=== PATIENT | male | born 1985 | race Caucasian/White ===

== ENCOUNTER 2019-04-11 16:20 | Emergency (ER) | payer MEDICAID ==
--- NOTE | 2019-04-11 16:48 | ED Physician Documentation ---
PD HPI HEADACHE - Stated complaint Stated Complaint: HEADACHE - Chief complaint Chief Complaint: Neuro - History obtained from History obtained from: Patient PD PAST MEDICAL HISTORY - Past Surgical History Past Surgical History: Yes HEENT: Myringotomy (tubes) - Present Medications Home Medications: Ambulatory Orders Medication Instructions Recorded Confirmed Amoxicillin/Potassium Clav 1 each PO BID #20 tablet 05/07/14 [Augmentin 875-125 Tablet] Hydrocodone/Acetaminophen 1 - 2 tab PO Q6H PRN #20 tablet 05/07/14 [Hydrocodon-Acetaminophen 5-325] predniSONE [Deltasone] 60 mg PO DAILY 5 Days tablet 05/07/14 - Allergies Allergies/Adverse Reactions: Allergies Allergy/AdvReac Type Severity Reaction Status Date / Time No Known Drug Allergies Allergy Verified 04/11/19 16:41 - Social History Does the pt smoke?: Yes Smoking Status: Current every day smoker Does the pt drink ETOH?: Yes Does the pt have substance abuse?: Yes - Immunizations Immunizations are current?: No Immunizations: TDAP >10years/unknown - POLST Patient has POLST: No Results - Vitals Vitals: Vital Signs - 24 hr 04/11/19 16:38 Temperature 36.6 C Heart Rate 79 Respiratory 16 Rate Blood Pressure 157/87 H O2 Saturation 100 Oxygen O2 Source Room air
[2019-04-11] MEDS ORDERED: PROCHLORPERAZINE 10 MG/2 ML VIAL IVP STA (17:18)
[2019-04-11] MEDS ORDERED: KETOROLAC 30 MG/ML VIAL IVP STA (17:18)
[2019-04-11] MEDS ORDERED: SODIUM CHLORIDE 0.9% 1,000 ML IV ONE (17:18)
[2019-04-11] MEDS ORDERED: diphenhydrAMINE INJ 50 MG/ML VIAL IVP STA (17:18)
[2019-04-11 17:24] LABS: BASOPHILS % (AUTO) 0.4 %; HGB - HEMOGLOBIN 18.6 g/dL (14.0-18.0); LYMPHOCYTES # (AUTO) 0.6 10^3/uL (1.5-3.5); LYMPHOCYTES % (AUTO) 7.6 %; MEAN CORPUSCULAR HEMOGLOBIN 33.2 pg (27.0-31.0); MEAN CORPUSCULAR HGB CONC 35.4 g/dL (32.0-36.0); MEAN CORPUSCULAR VOLUME 93.6 fL (80.0-94.0); MONOCYTES # (AUTO) 0.4 10^3/uL (0.0-1.0); MONOCYTES % (AUTO) 4.6 %; NEUTROPHILS # (AUTO) 7.2 10^3/uL (1.5-6.6); PLT - PLATELET COUNT 233 10^3/uL (130-450); RED BLOOD COUNT 5.61 10^6/uL (4.70-6.10); RED CELL DISTRIBUTION WIDTH 11.8 % (12.0-15.0); WHITE BLOOD COUNT 8.2 x10^3/uL (4.8-10.8)
--- NOTE | 2019-04-11 17:29 | ED Physician Documentation ---
PD HPI HEADACHE - Stated complaint Stated Complaint: HEADACHE - Chief complaint Chief Complaint: Neuro - History obtained from History obtained from: Patient, Family - History of Present Illness Timing - onset: How many days ago (4) Timing - onset during: Rest Timing - duration: Days (4) Timing - details: Gradual onset Pain level max: 10 Pain level now: 8 Location: Global Quality: Throbbing, Aching. No: Thunderclap Associated symptoms: Nausea. No: Fever, Stiff neck, Vomiting, Weakness, Numbness, Syncope, Seizure, Eye pain, Vision changes Improved by: Rest, Dark room Worsened by: Light, Noise Contributing factors: No: Anticoagulated, Possible carbon monoxide, Hypertension, Recent illness, Trauma Recently seen: Not recently seen Review of Systems Ten Systems: 10 systems reviewed and negative Constitutional: denies: Fever, Chills Ears: denies: Ear pain Nose: denies: Rhinorrhea / runny nose, Congestion Throat: denies: Sore throat Cardiac: denies: Chest pain / pressure Respiratory: denies: Cough GI: denies: Abdominal Pain, Nausea, Vomiting, Constipation, Diarrhea, Hematemesis, Bloody / black stool Skin: denies: Rash Musculoskeletal: denies: Neck pain, Back pain Neurologic: denies: Focal weakness, Numbness, Seizure, Confused, Head injury, LOC PD PAST MEDICAL HISTORY - Past Medical History Past Medical History: No - Past Surgical History Past Surgical History: Yes HEENT: Myringotomy (tubes) - Present Medications Home Medications: Ambulatory Orders Medication Instructions Recorded Confirmed Amoxicillin/Potassium Clav 1 each PO BID #20 tablet 05/07/14 [Augmentin 875-125 Tablet] Hydrocodone/Acetaminophen 1 - 2 tab PO Q6H PRN #20 tablet 05/07/14 [Hydrocodon-Acetaminophen 5-325] predniSONE [Deltasone] 60 mg PO DAILY 5 Days tablet 05/07/14 - Allergies Allergies/Adverse Reactions: Allergies Allergy/AdvReac Type Severity Reaction Status Date / Time No Known Drug Allergies Allergy Verified 04/11/19 16:41 - Social History Does the pt smoke?: Yes Smoking Status: Current every day smoker Does the pt drink ETOH?: Yes Does the pt have substance abuse?: Yes - Immunizations Immunizations are current?: No Immunizations: TDAP >10years/unknown - POLST Patient has POLST: No Results - Vitals Vitals: Vital Signs - 24 hr 04/11/19 04/11/19 04/11/19 16:38 16:52 18:01 Temperature 36.6 C 37.2 C 37.2 C Heart Rate 79 66 59 L Respiratory 16 20 16 Rate Blood Pressure 157/87 H 159/94 H 149/93 H O2 Saturation 100 100 100 04/11/19 19:16 Temperature Heart Rate 62 Respiratory 16 Rate Blood Pressure 148/84 H O2 Saturation 100 Oxygen O2 Source Room air - Labs Labs: Laboratory Tests 04/11/19 04/11/19 17:15 17:15 WBC 8.2 RBC 5.61 Hgb 18.6 H Hct 52.5 H MCV 93.6 MCH 33.2 H MCHC 35.4 RDW 11.8 L Plt Count 233 MPV 9.0 Neut # (Auto) 7.2 H Lymph # (Auto) 0.6 L Kleberg # (Auto) 0.4 Eos # (Auto) 0.0 Baso # (Auto) 0.0 Absolute Nucleated RBC 0.00 Nucleated RBC % 0.0 Sodium 133 L Potassium 4.1 Chloride 97 L Carbon Dioxide 20 L Anion Gap 16.0 H BUN 16 Creatinine 0.9 Estimated GFR (MDRD) 97 Glucose 104 H Calcium 10.0 Total Bilirubin 1.4 H AST 22 ALT 19 Alkaline Phosphatase 45 Total Protein 8.4 H Albumin 4.8 Globulin 3.6 Albumin/Globulin Ratio 1.3 Lipase 27 - Rads (name of study) Head CT Radiology: Prelim report reviewed, EMP read contemporaneously, See rad report (No acute intracranial abnormality) PD MEDICAL DECISION MAKING - ED course Complexity details: reviewed results, re-evaluated patient, considered asa hale, d/w patient, d/w family ED course: Patient presents to the emergency department for headache. No acute findings on head CT. Headache resolved with usual migraine therapies. He is well- appearing, nontoxic. No evidence of subarachnoid hemorrhage. No evidence of meningitis. No fevers. Full range of motion of the neck. GCS 15. Normal neuro exam. Possible cluster headache? Patient and family counseled regarding signs and symptoms for which I believe and urgent re-evaluation would be necessary. Patient with good understanding of and agreement to plan and is comfortable going home at this time This document was made in part using voice recognition software. While efforts are made to proofread this document, sound alike and grammatical errors may occur. Departure - Departure Disposition: 01 Home, Self Care Clinical Impression: Headache Qualifiers: Headache type: unspecified Headache chronicity pattern: acute headache Intractability: not intractable Qualified Code(s): R51 - Headache Condition: Good Instructions: ED Cephalgia Unspecified Follow-Up: your,doctor in 3 days [Other] Comments: Go home and rest. Return if you worsen. Follow-up with your doctor for further care. Drink plenty of fluids. Discharge Date/Time: 04/11/19 19:20
[2019-04-11 17:41] LABS: ALBUMIN 4.8 g/dL (3.2-5.5); ALBUMIN/GLOBULIN RATIO 1.3 (1.0-2.2); BILIRUBIN,TOTAL 1.4 mg/dL (0.2-1.0); CREATININE 0.9 mg/dL (0.6-1.2); TOTAL PROTEIN 8.4 g/dL (6.7-8.2)
--- NOTE | 2019-04-11 18:03 | CT Report ---
Reason: new headache Procedure Date: 04/11/2019 Accession Number: [id number] / [id number] Procedure: CT - HEAD WO CPT Code: Final Report FULL RESULT: EXAM: CT HEAD EXAM DATE: 04/11/2019 05:34 PM. CLINICAL HISTORY: New headache. COMPARISON: HEAD W/O 12/12/2012 1:22 AM. TECHNIQUE: Multiaxial CT images were obtained from the foramen magnum to the vertex. Reformats: Sagittal and coronal. IV contrast: None. In accordance with CT protocol optimization, one or more of the following dose reduction techniques were utilized for this exam: automated exposure control, adjustment of mA and/or KV based on patient size, or use of iterative reconstructive technique. FINDINGS: Parenchyma: No intraparenchymal hemorrhage. No evidence of mass, midline shift, or CT findings of infarction. Boyce-white differentiation is distinct. Extraaxial Spaces: Normal for age.No subdural or epidural collections identified. Ventricles: Normal in size and position. Sinuses and Orbits: Imaged paranasal sinuses, orbits, and mastoids show no significant abnormality. Bones: No evidence of fracture or calvarial defect. Other: None. IMPRESSION: No acute intracranial abnormality. RADIA
[2019-04-11] MEDS ORDERED: HALOPERIDOL 5 MG/ML VIAL IVP STA (18:13)
[2019-04-11 19:20] VITALS: BP 148/84
--- NOTE | 2019-04-16 18:07 | ED Physician Documentation ---
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
== END 2019-04-11 19:20 | disposition home or self-care (01) ==
LOC: ED 16:20
DX: R51 Headache (principal); F17.200 Nicotine dependence, unspecified, uncomplicated
CPT/HCPCS: 36415; 70450; 80053; 83690; 85025; 96361; 96374; 96375; 99285; J1200

== ENCOUNTER 2019-04-12 17:10 | Emergency (ER) | payer MEDICAID ==
[2019-04-12] MEDS ORDERED: diphenhydrAMINE INJ 50 MG/ML VIAL IVP STA (18:20)
[2019-04-12] MEDS ORDERED: METOCLOPRAMIDE 10 MG/2 ML VIAL IVP STA (18:20)
[2019-04-12] MEDS ORDERED: SODIUM CHLORIDE 0.9% 1,000 ML IV ONE (18:20)
[2019-04-12] MEDS ORDERED: KETOROLAC 30 MG/ML VIAL IVP STA (18:54)
[2019-04-12] MEDS ORDERED: SUMAtriptan 6 MG/0.5 ML VIAL SUBQ STA (18:55)
--- NOTE | 2019-04-12 18:56 | ED Physician Documentation ---
PD HPI HEADACHE - Stated complaint Stated Complaint: MIGRAINE - Chief complaint Chief Complaint: Neuro - History obtained from History obtained from: Patient, Family - History of Present Illness Timing - onset: How many days ago (4) Timing - onset during: Rest, Other Timing - duration: Days (4) Timing - details: Gradual onset, Still present in ED Severity Comments: moderate to severe Location: Global Quality: Throbbing, Aching Associated symptoms: Nausea, Vomiting, Other (feels that peripheral vision is blurred). No: Fever, Stiff neck, Weakness, Numbness, Syncope, Seizure, Eye pain Improved by: Dark room Worsened by: Light Contributing factors: No: Anticoagulated, Hypertension, Recent illness, Trauma Similar symptoms before: Work up / diagnostics (yesterday had a CT head completed which was negative, and received treatment with a headache cocktail) Recently seen: Emergency Dept - Treatment prior to arrival Treatment prior to arrival: took his grandmother's imitrex earlier today without relief. Review of Systems Ten Systems: 10 systems reviewed and negative Constitutional: reports: Reviewed and negative Eyes: reports: Photophobia Nose: reports: Reviewed and negative Throat: reports: Reviewed and negative GI: reports: Nausea, Vomiting, Reviewed and negative. denies: Abdominal Pain Musculoskeletal: denies: Neck pain Neurologic: reports: Headache. denies: Generalized weakness, Focal weakness, Numbness, Difficulty speaking, Syncope, Seizure, Altered mental status, LOC Endocrine: reports: Reviewed and negative Immunocompromised: reports: Reviewed and negative PD PAST MEDICAL HISTORY - Past Medical History Past Medical History: No - Past Surgical History Past Surgical History: Yes HEENT: Myringotomy (tubes) - Present Medications Home Medications: Ambulatory Orders Medication Instructions Recorded Confirmed Amoxicillin/Potassium Clav 1 each PO BID #20 tablet 05/07/14 [Augmentin 875-125 Tablet] Hydrocodone/Acetaminophen 1 - 2 tab PO Q6H PRN #20 tablet 05/07/14 [Hydrocodon-Acetaminophen 5-325] predniSONE [Deltasone] 60 mg PO DAILY 5 Days tablet 05/07/14 Metoclopramide [Reglan] 10 mg PO Q6H PRN #20 tablet 04/12/19 - Allergies Allergies/Adverse Reactions: Allergies Allergy/AdvReac Type Severity Reaction Status Date / Time No Known Drug Allergies Allergy Verified 04/11/19 16:41 - Social History Does the pt smoke?: Yes Smoking Status: Current every day smoker Does the pt drink ETOH?: Yes Does the pt have substance abuse?: Yes - Immunizations Immunizations are current?: No Immunizations: TDAP >10years/unknown - POLST Patient has POLST: No PD ED PE NORMAL - Vitals Vital signs reviewed: Yes - General General: Alert and oriented X 3, No acute distress, Well developed/nourished - HEENT HEENT: Atraumatic, PERRL, EOMI, Ears normal, Moist mucous membranes, Pharynx benign - Neck Neck: Supple, no meningeal sign - Cardiac Cardiac: RRR - Respiratory Respiratory: No respiratory distress, Clear bilaterally - Abdomen Abdomen: Soft, Non tender, Non distended - Male Male : Deferred - Rectal Rectal: Deferred - Derm Derm: Normal color, Warm and dry, No rash - Extremities Extremities: No deformity, No tenderness to palpate, Normal ROM s pain, No edema - Neuro Neuro: Alert and oriented X 3, manager behavior 2-12 intact, No motor deficit, No sensory deficit, Normal speech Eye Opening: Spontaneous Motor: Obeys Commands Verbal: Oriented GCS Score: 15 - Psych Psych: Normal mood, Normal affect PD ED PE EXPANDED - Neuro Neuro: Normal motor, Normal Sensation, Normal Speech Results - Vitals Vitals: Vital Signs - 24 hr 04/12/19 04/12/19 04/12/19 17:26 18:44 21:06 Temperature 36 C L Heart Rate 51 L 56 L 67 Respiratory 18 18 18 Rate Blood Pressure 148/98 H 149/75 H 152/81 H O2 Saturation 100 100 99 Oxygen O2 Source Room air PD MEDICAL DECISION MAKING - ED course Complexity details: reviewed old records, reviewed results, re-evaluated patient, considered differential, d/w patient, d/w family ED course: ddx- cluster headache, tension headache, migraine headache, meningitis, SAH, ICH, mass effect, glaucoma 33 y/o M with hx and exam as documented, No fever or nuchal rigidity, normal eye exam with reactive pupils and no evidence of glaucoma. GOMEZ of gradual onset with neg head CT yesterday. Doubt SAH. Given headache cocktail today - reglan, benadryl, fluids without significant relief. Also given toradol. Signed pt out to Dr. Isaac with plan to reassess. Departure - Departure Disposition: 01 Home, Self Care Clinical Impression: Acute headache Qualifiers: Headache type: unspecified Intractability: intractable Qualified Code(s): R51 - Headache Condition: Good Instructions: ED Cephalgia Unspecified Prescriptions: Metoclopramide [Reglan] 10 mg PO Q6H PRN #20 tablet PRN Reason: nausea or headache Comments: RETURN IF WORSE, FOR ANY FEVER >100.4f. FOLLOWUP WITH YOUR PHYSICIAN, NEXT AVAILABLE. Discharge Date/Time: 04/12/19 21:38
[2019-04-12 21:07] VITALS: BP 152/81
[2019-04-12] MEDS ORDERED: HYDROcod/ACET 5/325 Prepack 4 PO STA (21:11)
--- NOTE | 2019-04-12 21:15 | ED Physician Documentation ---
ED Addendum - Addendum Addendum: 04/12/19 21:15 Patient signed out to me by Dr. Waggoner. See her note, also Dr. Easton's note from yesterday. Briefly this is a young man with an acute headache. On my examination there is no neck stiffness, no fever. Labs from yesterday reviewed. Head injuryHead CT from yesterday reviewed. He was feeling better after Imitrex. However oral Imitrex prior to arrival had not been helpful. He appeared well. No meningismus. Counseled. Four Vicodin to go.
[2019-04-12] MEDS ORDERED: ONDANSETRON ODT 4 MG Prepack 2 TL STA (21:18)
== END 2019-04-12 21:38 | disposition home or self-care (01) ==
LOC: ED 17:10
DX: R51 Headache (principal); R11.2 Nausea with vomiting, unspecified; H53.149 Visual discomfort, unspecified; F17.200 Nicotine dependence, unspecified, uncomplicated
CPT/HCPCS: 96361; 96372; 96374; 96375; 99284; 99285; J1200; J2765

== ENCOUNTER 2019-04-13 11:05 | Emergency (ER) | payer MEDICAID ==
--- NOTE | 2019-04-13 12:55 | ED Physician Documentation ---
PD HPI HEADACHE - Stated complaint Stated Complaint: HEADACHE - Chief complaint Chief Complaint: Neuro - History obtained from History obtained from: Patient PD PAST MEDICAL HISTORY - Past Surgical History Past Surgical History: Yes HEENT: Myringotomy (tubes) - Present Medications Home Medications: Ambulatory Orders Medication Instructions Recorded Confirmed Amoxicillin/Potassium Clav 1 each PO BID #20 tablet 05/07/14 [Augmentin 875-125 Tablet] Hydrocodone/Acetaminophen 1 - 2 tab PO Q6H PRN #20 tablet 05/07/14 [Hydrocodon-Acetaminophen 5-325] predniSONE [Deltasone] 60 mg PO DAILY 5 Days tablet 05/07/14 Metoclopramide [Reglan] 10 mg PO Q6H PRN #20 tablet 04/12/19 - Allergies Allergies/Adverse Reactions: Allergies Allergy/AdvReac Type Severity Reaction Status Date / Time No Known Drug Allergies Allergy Verified 04/11/19 16:41 - Social History Does the pt smoke?: Yes Smoking Status: Current every day smoker Does the pt drink ETOH?: Yes Does the pt have substance abuse?: Yes - Immunizations Immunizations are current?: No Immunizations: TDAP >10years/unknown - POLST Patient has POLST: No Results - Vitals Vitals: Vital Signs - 24 hr 04/13/19 11:28 Temperature 37 C Heart Rate 52 L Respiratory 18 Rate Blood Pressure 116/96 H O2 Saturation 100 Oxygen O2 Source Room air
[2019-04-13] MEDS ORDERED: diphenhydrAMINE INJ 50 MG/ML VIAL IVP STA (13:00)
[2019-04-13] MEDS ORDERED: HALOPERIDOL 5 MG/ML VIAL IVP ONE (13:00)
[2019-04-13] MEDS ORDERED: IOVERSOL 320 100 ML VIAL IVP ONE ×2 (13:04→18:02)
[2019-04-13 13:35] LABS: BASOPHILS % (AUTO) 0.4 %; EOSINOPHILS % (AUTO) 0.1 %; HGB - HEMOGLOBIN 16.7 g/dL (14.0-18.0); LYMPHOCYTES # (AUTO) 0.6 10^3/uL (1.5-3.5); LYMPHOCYTES % (AUTO) 8.7 %; MEAN CORPUSCULAR HEMOGLOBIN 33.7 pg (27.0-31.0); MEAN CORPUSCULAR HGB CONC 35.4 g/dL (32.0-36.0); MEAN CORPUSCULAR VOLUME 95.2 fL (80.0-94.0); MONOCYTES # (AUTO) 0.5 10^3/uL (0.0-1.0); MONOCYTES % (AUTO) 7.2 %; NEUTROPHILS # (AUTO) 5.7 10^3/uL (1.5-6.6); NEUTROPHILS % (AUTO) 83.2 %; PLT - PLATELET COUNT 198 10^3/uL (130-450); RED BLOOD COUNT 4.96 10^6/uL (4.70-6.10); WHITE BLOOD COUNT 6.9 x10^3/uL (4.8-10.8)
[2019-04-13 13:50] LABS: CALCIUM 9.3 mg/dL (8.5-10.3); CREATININE 0.8 mg/dL (0.6-1.2)
--- NOTE | 2019-04-13 14:09 | CT Report ---
Reason: headache Procedure Date: 04/13/2019 Accession Number: [id number] / [id number] Procedure: CT - ANGIO HEAD W/WO CPT Code: Final Report FULL RESULT: EXAM: CT ANGIOGRAM HEAD. CT SCAN OF THE HEAD WITHOUT AND WITH CONTRAST. EXAM DATE: 04/13/2019 01:50 PM CLINICAL HISTORY: 33-year-old presenting with severe headache. Evaluate for intracranial pathology. COMPARISON: HEAD W/O 04/11/2019 5:30 PM. TECHNIQUE: - CT Scan Head: Using a multidetector scanner, axial images were acquired from the foramen magnum to the skull vertex prior to and following contrast administration. - CT Angiogram: Using a multidetector scanner, high-resolution axial images were acquired from the skull base through vertex following rapid infusion of intravenous contrast. Reformats: Multiplanar MIP reformats were reconstructed. Nascet criteria used for stenosis measurement. IV Contrast: Optiray- 320 80 mL. In accordance with CT protocol optimization, one or more of the following dose reduction techniques were utilized for this exam: automated exposure control, adjustment of mA and/or KV based on patient size, or use of iterative reconstructive technique. FINDINGS: NON-CONTRAST HEAD: Parenchyma: No intraparenchymal hemorrhage. No evidence of mass, midline shift, or CT findings of infarction. Boyce-white differentiation is distinct. Extraaxial Spaces: Normal for age.No subdural or epidural collections identified. Ventricles: Normal in size and position. Sinuses and orbits: The orbits appear normal. Tiny right maxillary mucosal retention cyst versus polyp. Small bilateral mastoid effusions. There appears to be opacification of a few posterior ethmoid air cells. Bones: No evidence of fracture or calvarial defect. Other: None. POST-CONTRAST HEAD: No abnormal enhancement. CT ANGIOGRAM HEAD: RIGHT: Internal Carotid artery: No evidence of dissection. No evidence of aneurysm along the intracranial ICA. Anterior Cerebral Artery: Patent without significant stenosis, aneurysm, or vascular malformation. Middle Cerebral Artery: Patent without significant stenosis, aneurysm, or vascular malformation. Posterior Cerebral Artery: Patent without significant stenosis, aneurysm, or vascular malformation. Posterior Communicating Artery: Not definitively seen. No aneurysm. Vertebral Artery: Patent without significant stenosis. No evidence of dissection. LEFT: Internal Carotid artery: No evidence of dissection. No evidence of aneurysm along the intracranial ICA. Anterior Cerebral Artery: Patent without significant stenosis, aneurysm, or vascular malformation. Middle Cerebral Artery: Patent without significant stenosis, aneurysm, or vascular malformation. Posterior Cerebral Artery: -like CONVENTIONAL UNDERWRITER. No aneurysm. Posterior Communicating Artery: Patent. No aneurysm. Vertebral Artery: Patent without significant stenosis. No evidence of dissection. CENTRAL: Anterior Communicating Artery: Patent. There is a bulbous appearance to the right aspect of the anterior communicating artery measuring 3.3 x 3.6 mm (series 6, image 115). Basilar Artery: Patent without significant stenosis. No aneurysm. DURAL VENOUS SINUSES AND MAJOR CENTRAL VEINS: Patent. IMPRESSION: CT Head: 1. No definite acute intercranial pathology seen; specifically, no acute infarct, acute intracranial hemorrhage, mass, hydrocephalus, or midline shift. No abnormal postcontrast enhancement. CTA Head: 1. No large vessel occlusion. 2. There is a bulbous appearance to the right aspect of the anterior commuting artery measuring 3.3 x 3.6 mm (series 6, image 115) concerning for potential aneurysm. Consider MRA for further evaluation. 3. No high-grade stenosis. RADIA The call report notification system was initiated by Dr. Lobito Silverio at 02:08 PM on 04/13/2019. The above call report findings were discussed with Delicia Waggoner by Dr. Lobito Silverio at 02:10 PM on 04/13/2019.
[2019-04-13] MEDS ORDERED: PROMETHAZINE INJ 25 MG in SODIUM CHLORIDE 0.9% 50 ML IV STA (14:17)
--- NOTE | 2019-04-13 15:03 | ED Physician Documentation ---
PD HPI HEADACHE - Stated complaint Stated Complaint: HEADACHE - Chief complaint Chief Complaint: Neuro - History obtained from History obtained from: Patient - History of Present Illness Timing - onset: Other (4) Timing - onset during: Light activity Timing - duration: Days (4) Timing - details: Abrupt onset (gradually worsening) Severity Comments: moderate to severe Worst headache ever?: Worst headache ever? (no hx of prior headaches) Location: Global Quality: Aching, Tightness Associated symptoms: Nausea, Vomiting, Other (photophobia). No: Fever, Stiff neck, Weakness, Numbness, Syncope, Seizure, Eye pain, Vision changes Worsened by: Light, Noise, Moving Contributing factors: No: Anticoagulated, Possible carbon monoxide, Hypertension, Recent illness, Trauma Similar symptoms before: Has not had sx before Recently seen: Emergency Dept (with CT head noncontrast which was negative. Was given iv meds for nausea, vomiting and headache and felt better but then headache returned today) - Treatment prior to arrival Treatment prior to arrival: reglan at home today Review of Systems Ten Systems: 10 systems reviewed and negative Constitutional: reports: Fatigue Eyes: reports: Photophobia Nose: reports: Reviewed and negative. denies: Sinus pressure / pain Throat: reports: Reviewed and negative Cardiac: reports: Reviewed and negative GI: reports: Nausea, Vomiting Skin: reports: Reviewed and negative Musculoskeletal: denies: Neck pain Neurologic: reports: Headache. denies: Generalized weakness, Focal weakness, Numbness Immunocompromised: reports: Reviewed and negative PD PAST MEDICAL HISTORY - Past Medical History Past Medical History: No - Past Surgical History Past Surgical History: Yes HEENT: Myringotomy (tubes) - Present Medications Home Medications: Ambulatory Orders Medication Instructions Recorded Confirmed Amoxicillin/Potassium Clav 1 each PO BID #20 tablet 05/07/14 [Augmentin 875-125 Tablet] Hydrocodone/Acetaminophen 1 - 2 tab PO Q6H PRN #20 tablet 05/07/14 [Hydrocodon-Acetaminophen 5-325] predniSONE [Deltasone] 60 mg PO DAILY 5 Days tablet 05/07/14 Metoclopramide [Reglan] 10 mg PO Q6H PRN #20 tablet 04/12/19 - Allergies Allergies/Adverse Reactions: Allergies Allergy/AdvReac Type Severity Reaction Status Date / Time No Known Drug Allergies Allergy Verified 04/11/19 16:41 - Social History Does the pt smoke?: Yes Smoking Status: Current every day smoker Does the pt drink ETOH?: Yes Does the pt have substance abuse?: Yes - Immunizations Immunizations are current?: No Immunizations: TDAP >10years/unknown - POLST Patient has POLST: No PD ED PE NORMAL - Vitals Vital signs reviewed: Yes - General General: Alert and oriented X 3, No acute distress, Well developed/nourished - HEENT HEENT: Atraumatic, PERRL, EOMI, Moist mucous membranes, Pharynx benign - Neck Neck: Supple, no meningeal sign, No JVD - Cardiac Cardiac: RRR - Respiratory Respiratory: No respiratory distress - Abdomen Abdomen: Soft, Non distended - Male Male : Deferred - Rectal Rectal: Deferred - Derm Derm: Normal color, Warm and dry, No rash - Extremities Extremities: No deformity, No edema - Neuro Neuro: Alert and oriented X 3, momd teacher 2-12 intact, No motor deficit, No sensory deficit, Normal speech Eye Opening: Spontaneous Motor: Obeys Commands Verbal: Oriented GCS Score: 15 - Psych Psych: Other (flat affect, depressed mood) Results - Vitals Vitals: Vital Signs - 24 hr 04/13/19 04/13/19 04/13/19 11:28 14:03 14:30 Temperature 37 C Heart Rate 52 L 45 L 50 L Respiratory 18 17 15 Rate Blood Pressure 116/96 H 168/93 H 156/96 H O2 Saturation 100 99 100 04/13/19 04/13/19 16:42 17:12 Temperature 36.8 C Heart Rate 55 L 51 L Respiratory 15 14 Rate Blood Pressure 148/93 H 149/94 H O2 Saturation 99 97 Oxygen O2 Source Room air - Labs Labs: Laboratory Tests 04/13/19 04/13/19 13:12 13:12 WBC 6.9 RBC 4.96 Hgb 16.7 Hct 47.2 MCV 95.2 H MCH 33.7 H MCHC 35.4 RDW 12.0 Plt Count 198 MPV 9.0 Neut # (Auto) 5.7 Lymph # (Auto) 0.6 L [place] # (Auto) 0.5 Eos # (Auto) 0.0 Baso # (Auto) 0.0 Absolute Nucleated RBC 0.00 Nucleated RBC % 0.0 Sodium 134 L Potassium 3.7 Chloride 96 L Carbon Dioxide 29 Anion Gap 9.0 BUN 17 Creatinine 0.8 Estimated GFR (MDRD) 111 Glucose 127 H Calcium 9.3 normal except mild hyperglycemia and hyponatremia - Rads (name of study) CTA head Radiology: Final report received, Discussed with rads, Other (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 Multiple visits for GOMEZ, improved but then recurred on prior visits. Head CT from a few days ago negative. Given analgesics here and GOMEZ cocktail but given his persistent headache obtained CTA to evaluate for SAH. 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 I discussed these results with the patient as well as Cerebrovascular surgeon Dr. Davies at [facility] who accepted the pt for transfer for 4 vessel angiogram. He advised to hold on an LP at this point as the xanthochromasia testing at our facility is not sufficient to determine an acute bleed and will likely cloud the clinical picture. Pt is maintaining his airway, was given additional analgesics and is stable for transfer at this point, we are awaiting a bed. Dr. Flood is also aware of this plan at time of signout. - Consults Consults: Consulted (name) (Dr. Suárez Cerebrovascular surgery at [facility]) Departure - Departure Disposition: 02 Transfer Acute Care Hosp Clinical Impression: Brain aneurysm Intractable headache Qualifiers: Headache type: unspecified Headache chronicity pattern: acute headache Qualified Code(s): R51 - Headache
[2019-04-13] MEDS ORDERED: HYDROmorphone 1 MG/ML CARPUJECT IVP STA ×2 (15:29→19:30)
[2019-04-13] MEDS ORDERED: fentaNYL 100 MCG/2 ML VIAL IVP STA (18:14)
[2019-04-13] MEDS ORDERED: DEXAMETHASONE 10 MG/ML VIAL IVP STA (18:14)
[2019-04-13 19:12] VITALS: BP 161/74
== END 2019-04-13 19:40 | disposition short-term general hospital (02) ==
LOC: ED 11:05
DX: I67.1 Cerebral aneurysm, nonruptured (principal); H53.149 Visual discomfort, unspecified; F17.200 Nicotine dependence, unspecified, uncomplicated
CPT/HCPCS: 36415; 70496; 80048; 85025; 96365; 96375; 99285; J1170; J1200; J7040; Q9967

== ENCOUNTER 2019-04-13 19:39 | Outpatient (CLI) | payer MEDICAID | END 2019-04-13 19:40 | disposition short-term general hospital (02) | LOC: EMS 19:39 | PROVIDERS: ATTEND Surgery | DX: I67.1 Cerebral aneurysm, nonruptured (principal) | CPT/HCPCS: A0425; A0428 ==

== ENCOUNTER 2019-04-26 19:05 | Emergency (ER) | payer MEDICAID ==
[2019-04-26] MEDS ORDERED: diphenhydrAMINE INJ 50 MG/ML VIAL IVP STA (20:24)
[2019-04-26] MEDS ORDERED: PROCHLORPERAZINE 10 MG/2 ML VIAL IVP STA (20:24)
[2019-04-26] MEDS ORDERED: SODIUM CHLORIDE 0.9% 1,000 ML IV ONE ×2 (20:24)
[2019-04-26] MEDS ORDERED: HYDROmorphone 1 MG/ML CARPUJECT IVP STA (20:37)
[2019-04-26] MEDS ORDERED: HYDROmorphone 1 MG/ML CARPUJECT ONE (20:39)
--- NOTE | 2019-04-26 20:43 | ED Physician Documentation ---
History of Present Illness - Stated complaint Stated Complaint: HEADACHE - CURRENT MENINGITIS TREATMENT - Chief complaint Chief Complaint: General - History obtained from History obtained from: Patient - History of Present Illness Timing: Today Pain level max: 10 Pain level now: 10 - Additonal information Additional information: 33-year-old male states that he is being treated for viral meningitis by [facility]. He states that he has been on IV acyclovir for 10 days. He was seen down at [facility] last week in the emergency department for a headache. Had another headache developed today. He took Motrin without relief prior to coming in. No fevers. No vomiting. Worse with light and sound. Review of Systems Constitutional: denies: Fever, Chills GI: denies: Vomiting, Constipation Skin: denies: Rash Musculoskeletal: denies: Neck pain, Back pain Neurologic: reports: Headache. denies: Focal weakness, Numbness, Confused, Altered mental status PD PAST MEDICAL HISTORY - Past Medical History Past Medical History: Yes - Past Surgical History Past Surgical History: Yes HEENT: Myringotomy (tubes) - Present Medications Home Medications: Ambulatory Orders Medication Instructions Recorded Confirmed Amoxicillin/Potassium Clav 1 each PO BID #20 tablet 05/07/14 [Augmentin 875-125 Tablet] Hydrocodone/Acetaminophen 1 - 2 tab PO Q6H PRN #20 tablet 05/07/14 [Hydrocodon-Acetaminophen 5-325] predniSONE [Deltasone] 60 mg PO DAILY 5 Days tablet 05/07/14 Metoclopramide [Reglan] 10 mg PO Q6H PRN #20 tablet 04/12/19 - Allergies Allergies/Adverse Reactions: Allergies Allergy/AdvReac Type Severity Reaction Status Date / Time No Known Drug Allergies Allergy Verified 04/26/19 19:17 - Social History Does the pt smoke?: Yes Smoking Status: Current every day smoker Does the pt drink ETOH?: Yes Does the pt have substance abuse?: Yes - Immunizations Immunizations are current?: No Immunizations: TDAP >10years/unknown - POLST Patient has POLST: No PD ED PE NORMAL - Vitals Vital signs reviewed: Yes - General General: Alert and oriented X 3, No acute distress, Well developed/nourished - HEENT HEENT: Atraumatic, PERRL, EOMI, Ears normal, Moist mucous membranes - Neck Neck: Supple, no meningeal sign - Cardiac Cardiac: RRR, Strong equal pulses - Respiratory Respiratory: No respiratory distress, Clear bilaterally - Abdomen Abdomen: Soft, Non tender, Non distended - Derm Derm: Warm and dry, No rash - Extremities Extremities: No edema - Neuro Neuro: Alert and oriented X 3 - Psych Psych: Normal mood, Normal affect Results - Vitals Vitals: Vital Signs - 24 hr 04/26/19 04/26/19 19:12 21:56 Temperature 36.5 C 36.5 C Heart Rate 67 48 L Respiratory 18 20 Rate Blood Pressure 159/115 H 159/111 H O2 Saturation 100 100 Oxygen O2 Source Room air - Labs Labs: Laboratory Tests 04/26/19 04/26/19 20:45 20:45 WBC 9.2 RBC 4.49 L Hgb 15.1 Hct 42.8 MCV 95.3 H MCH 33.6 H MCHC 35.3 RDW 12.2 Plt Count 231 MPV 8.6 Neut # (Auto) 6.8 H Lymph # (Auto) 1.6 Riley # (Auto) 0.5 Eos # (Auto) 0.2 Baso # (Auto) 0.1 Absolute Nucleated RBC 0.00 Nucleated RBC % 0.0 Sodium 138 Potassium 3.4 L Chloride 103 Carbon Dioxide 25 Anion Gap 10.0 BUN 13 Creatinine 0.8 Estimated GFR (MDRD) 111 Glucose 98 Calcium 8.9 Total Bilirubin 0.6 AST 15 ALT 19 Alkaline Phosphatase 39 L Total Protein 6.9 Albumin 4.4 Globulin 2.5 Albumin/Globulin Ratio 1.8 Lipase 28 PD MEDICAL DECISION MAKING - ED course Complexity details: reviewed results, re-evaluated patient, considered differential, d/w patient, d/w family ED course: Symptoms resolved with normal saline, Dilaudid, Compazine and Benadryl. Feels much better. He will continue his acyclovir at home. No evidence of subarachnoid hemorrhage. Patient and family counseled regarding signs and symptoms for which I believe and urgent re-evaluation would be necessary. Patient with good understanding of and agreement to plan and is comfortable going home at this time This document was made in part using voice recognition software. While efforts are made to proofread this document, sound alike and grammatical errors may occur. Attempted to obtain records from [facility] inpatient hospitalization as well as has ER visit, neither of these are available tonight. Departure - Departure Disposition: Home, Self Care Clinical Impression: Headache Qualifiers: Headache type: unspecified Headache chronicity pattern: acute headache Intractability: not intractable Qualified Code(s): R51 - Headache Condition: Good Instructions: ED Cephalgia Unspecified, ED Meningitis Viral Follow-Up: your,doctor in 1 week [Other] Comments: go home and rest tonight. return if you worsen. Discharge Date/Time: 04/26/19 21:59
[2019-04-26 20:48] LABS: BASOPHILS # (AUTO) 0.1 10^3/uL (0.0-0.1); BASOPHILS % (AUTO) 0.5 %; EOSINOPHILS # (AUTO) 0.2 10^3/uL (0.0-0.7); HGB - HEMOGLOBIN 15.1 g/dL (14.0-18.0); LYMPHOCYTES # (AUTO) 1.6 10^3/uL (1.5-3.5); LYMPHOCYTES % (AUTO) 17.5 %; MEAN CORPUSCULAR HEMOGLOBIN 33.6 pg (27.0-31.0); MEAN CORPUSCULAR HGB CONC 35.3 g/dL (32.0-36.0); MEAN CORPUSCULAR VOLUME 95.3 fL (80.0-94.0); MEAN PLATELET VOLUME 8.6 fL (7.4-11.4); MONOCYTES # (AUTO) 0.5 10^3/uL (0.0-1.0); MONOCYTES % (AUTO) 5.5 %; NEUTROPHILS # (AUTO) 6.8 10^3/uL (1.5-6.6); NEUTROPHILS % (AUTO) 74.1 %; PLT - PLATELET COUNT 231 10^3/uL (130-450); RED BLOOD COUNT 4.49 10^6/uL (4.70-6.10); RED CELL DISTRIBUTION WIDTH 12.2 % (12.0-15.0); WHITE BLOOD COUNT 9.2 x10^3/uL (4.8-10.8)
[2019-04-26 21:01] LABS: ALBUMIN 4.4 g/dL (3.2-5.5); ALBUMIN/GLOBULIN RATIO 1.8 (1.0-2.2); BILIRUBIN,TOTAL 0.6 mg/dL (0.2-1.0); CALCIUM 8.9 mg/dL (8.5-10.3); CREATININE 0.8 mg/dL (0.6-1.2); TOTAL PROTEIN 6.9 g/dL (6.7-8.2)
[2019-04-26 21:57] VITALS: BP 159/111
== END 2019-04-26 21:59 | disposition home or self-care (01) ==
LOC: ED 19:05
DX: R51 Headache (principal); A87.9 Viral meningitis, unspecified; F17.200 Nicotine dependence, unspecified, uncomplicated
CPT/HCPCS: 36415; 80053; 83690; 85025; 96361; 96374; 96375; 99283; 99284; J1170; J1200

== ENCOUNTER 2019-05-01 13:00 | Outpatient (CLI) | payer MEDICAID ==
[2019-05-01 15:40] LABS: BASOPHILS # (AUTO) 0.1 10^3/uL (0.0-0.1); BASOPHILS % (AUTO) 0.9 %; EOSINOPHILS # (AUTO) 0.2 10^3/uL (0.0-0.7); EOSINOPHILS % (AUTO) 2.6 %; HGB - HEMOGLOBIN 15.3 g/dL (14.0-18.0); LYMPHOCYTES # (AUTO) 1.5 10^3/uL (1.5-3.5); LYMPHOCYTES % (AUTO) 19.7 %; MEAN CORPUSCULAR HEMOGLOBIN 33.8 pg (27.0-31.0); MEAN CORPUSCULAR HGB CONC 35.4 g/dL (32.0-36.0); MEAN CORPUSCULAR VOLUME 95.4 fL (80.0-94.0); MEAN PLATELET VOLUME 9.4 fL (7.4-11.4); MONOCYTES # (AUTO) 0.5 10^3/uL (0.0-1.0); NEUTROPHILS # (AUTO) 5.4 10^3/uL (1.5-6.6); NEUTROPHILS % (AUTO) 70.4 %; PLT - PLATELET COUNT 234 10^3/uL (130-450); RED BLOOD COUNT 4.53 10^6/uL (4.70-6.10); RED CELL DISTRIBUTION WIDTH 12.4 % (12.0-15.0); WHITE BLOOD COUNT 7.7 x10^3/uL (4.8-10.8)
[2019-05-01 15:47] LABS: ALBUMIN 4.4 g/dL (3.2-5.5); ALBUMIN/GLOBULIN RATIO 1.7 (1.0-2.2); BILIRUBIN,TOTAL 1.1 mg/dL (0.2-1.0); CALCIUM 9.1 mg/dL (8.5-10.3); CREATININE 1.1 mg/dL (0.6-1.2)
== END 2019-05-01 23:59 ==
LOC: LAB.R 13:00
PROVIDERS: ATTEND Internal Medicine
DX: G03.9 Meningitis, unspecified (principal)
CPT/HCPCS: 80053; 85025

== ENCOUNTER 2023-11-14 12:21 | Emergency (ER) | payer MEDICAID ==
[2023-11-14 12:31] VITALS: O2SAT 100
[2023-11-14 13:03] LABS: RAPID STREP SCREEN POSITIVE (Negative)
--- NOTE | 2023-11-14 15:13 | ED Physician Documentation ---
PD HPI HEENT - Stated complaint Stated Complaint: SORE THROAT/SWELLING - Chief complaint Chief Complaint: Heent - History obtained from History obtained from: Patient (3 days of sore throat without fevers. No cough or runny nose.) PD PAST MEDICAL HISTORY - Past Medical History Past Medical History: Yes Other Past Medical History: meningitis - Past Surgical History Past Surgical History: Yes HEENT: Myringotomy (tubes) - Present Medications Home Medications: Ambulatory Orders Medication Instructions Recorded Confirmed Amoxicillin/Potassium Clav 1 each PO BID #20 tablet 05/07/14 [Augmentin 875-125 Tablet] Hydrocodone/Acetaminophen 1 - 2 tab PO Q6H PRN #20 tablet 05/07/14 [Hydrocodon-Acetaminophen 5-325] predniSONE [Deltasone] 60 mg PO DAILY 5 Days tablet 05/07/14 Metoclopramide [Reglan] 10 mg PO Q6H PRN #20 tablet 04/12/19 LORazepam [Ativan] 1 mg PO TID PRN #9 tablet 11/28/19 Ondansetron Odt [Zofran] 4 mg TL Q6H PRN #10 tablet 11/28/19 cloNIDine [Catapres] 0.1 mg PO TID #9 tablet 11/28/19 Penicillin V Potassium 500 mg PO Q6HR #40 tablet 11/14/23 - Allergies Allergies/Adverse Reactions: Allergies Allergy/AdvReac Type Severity Reaction Status Date / Time No Known Drug Allergies Allergy Verified 11/14/23 12:31 - Social History Does the pt smoke?: Yes Smoking Status: Current every day smoker Does the pt drink ETOH?: Yes Does the pt have substance abuse?: Yes - Immunizations Immunizations are current?: No Immunizations: TDAP >10years/unknown - POLST Patient has POLST: No PD ED PE NORMAL - Vitals Vital signs reviewed: Yes - General General: Alert and oriented X 3, No acute distress - HEENT HEENT: Other (Symmetric exudative tonsillitis without much swelling. Mild anterior cervical adenopathy.) Results - Vitals Vitals: Vital Signs - 24 hr 11/14/23 12:27 Temperature 36.8 C Heart Rate 66 Respiratory 20 Rate Blood Pressure 118/75 O2 Saturation 100 Oxygen O2 Source Room air - Labs Labs: Laboratory Tests 11/14/23 12:37 Group A Strep Rapid POSITIVE H PD Medical Decision Making - ED course ED course: 38-year-old gentleman with strep throat treated with penicillin. Departure - Departure Disposition: 01 Home, Self Care Clinical Impression: Strep pharyngitis Condition: Good Record reviewed to determine appropriate education?: Yes Instructions: ED Strep Pharyngitis Conf Prescriptions: Penicillin V Potassium 500 mg PO Q6HR #40 tablet Comments: I sent your prescription electronically to the [facility] in [place]. He did test positive for strep throat today. You will be contagious for about 24 hours after starting the penicillin. Return if you worsen. Forms: PCP List
[2023-11-14 15:24] VITALS: BP 120/72
== END 2023-11-14 15:17 | disposition home or self-care (01) ==
LOC: ED 12:21
DX: J02.0 Streptococcal pharyngitis (principal); F17.200 Nicotine dependence, unspecified, uncomplicated
CPT/HCPCS: 87430; 99282; 99283